=== PATIENT | male | born 1955 | race Caucasian/White ===

== ENCOUNTER → 2017-03-25 | Outpatient (CLI) | payer BC ==
[~2017-03-25] MED LIST: ASPI81TA28 PO; HYDR25TA4 PO; LISI40TA PO; PRAV20TA PO
--- NOTE | 2017-03-25 10:20 | DIAGNOSTIC IMAGING REPORT ---
CHEST 2 VIEWS ROUTINE CLINICAL HISTORY: R07.9 chest pain COMPARISON STUDY: No previous studies for comparison. FINDINGS: The bones soft tissues and hemidiaphragms are normal. The cardiomediastinal silhouette is normal. The lungs are clear. The pulmonary vasculature is normal. IMPRESSION: Negative chest. The above report was generated using voice recognition software. It may contain grammatical, syntax or spelling errors. Electronically signed by: Cecil Casas M.D. 03/25/2017 10:19 AM Dictated Date/Time: 03/25/2017 10:18 AM
== END | disposition home or self-care (01) ==
LOC: C.RAD1850 10:04
PROVIDERS: ATTEND Family Medicine
DX: R07.9 Chest pain, unspecified (principal)

== ENCOUNTER 2017-03-26 10:35 | Emergency (ER) | payer BC ==
[~2017-03-26] VITALS: Ht 170.2 cm; Wt 75.3 kg
[2017-03-26 10:50] VITALS: TEMP 36.7; Ht 170.2 cm; Wt 75.3 kg
[2017-03-26] MEDS ORDERED: LISI40TA PO (12:11)
[2017-03-26] MEDS ORDERED: ASPI81TA28 PO (12:11)
[2017-03-26] MEDS ORDERED: PRAV20TA PO (12:11)
[2017-03-26] MEDS ORDERED: HYDR25TA4 PO (12:11)
--- NOTE | 2017-03-26 12:52 | DIAGNOSTIC IMAGING REPORT ---
CHEST 2 VIEWS ROUTINE CLINICAL HISTORY: Right supraclavicular mass. Left-sided chest pain. COMPARISON STUDY: Chest radiograph March 25, 2017. FINDINGS: Lung volumes are normal. No pneumothorax or pleural effusion is present. There is mild hazy left lower lung opacity. Right lung is clear. Pulmonary vascularity is normal. Cardiomediastinal silhouette is normal. IMPRESSION: Mild hazy left lower lung opacity. Atelectasis is favored. An mild infectious process could appear similar although is considered less likely. Electronically signed by: Hans Daniels M.D. 03/26/2017 12:51 PM Dictated Date/Time: 03/26/2017 12:49 PM
--- NOTE | 2017-03-26 12:55 | DIAGNOSTIC IMAGING REPORT ---
NECK ULTRASOUND CLINICAL HISTORY: Right supraclavicular mass. Possible cyst. COMPARISON STUDY: None. TECHNIQUE: Sonography of the neck at site of palpable abnormality was performed. FINDINGS: Note is made of an 8.8 x 2.4 x 5.8 cm right supraclavicular mass-like abnormality. This contains no color flow. No cystic component is present. This is slightly hypoechoic when compared to the subcutaneous fat. IMPRESSION: 8.8 x 2.4 x 5.8 cm right supraclavicular mass-like abnormality which contains no color flow. The sonographic appearance is nonspecific although favors a fatty lesion such as lipoma. Clinical follow-up to ensure stability is recommended. If interval enlargement, a contrast-enhanced CT is recommended. Electronically signed by: Hans Daniels M.D. 03/26/2017 12:53 PM Dictated Date/Time: 03/26/2017 12:51 PM
--- NOTE | 2017-03-26 13:14 | EMERGENCY ROOM VISIT NOTE ---
History First contact with patient: 11:27 Chief Complaint: NEURO SYMPTOMS Stated Complaint: TINGLING IN FINGERS AND SWOLLEN NECK Nursing Triage Summary: pt reports starting tuesday he had a sneeze x's 2 and developed onset of left chest pain and tingling was doing measures at home to relieve as he thought he pulled a muscle he did ice/heat off and on and motrin and tylenol with no relief he already had an appointment on tuesday, at Dr Dave office patient had complete cardiac workup EKG, CXR and Lab work with no results this AM he woke up with right sided neck mass, noticiably worse when sitting does not pulse, feels spongy pt reports no trouble swallowing and has had all vaccinations with no known exposure to infections diseases History of Present Illness The patient is a 62 year old male who presents to the Emergency Room with complaints of chest pain, numbness in left fingers and right sided supraclavicular mass. He was seen at his PCPs office today and sent to the ER for further evaluation of the supraclavicular mass. He reports the chest pain is left sided came on after sneezing, no worse on palpation or inspiration. It is intermittent and appears somewhat positional (rolling over in bed can help). He denies any associated diaphoresis or shortness of breath. No radiation. It is mild, sharp and lasts for a few seconds at a time. The numbness however has been constant in his finger tips after the sneezing episode. He denies any diabetes. He was seen in the office yesterday and have a workup including normal EKG, d- dimer and troponin. He reports he is no worse today than he was yesterday. However his PCP noted a right sided supraclavicular mass that was present today and did not notice yesterday therefore was sent to the ER. He is a current oral tobacco user but quit smoking 30 years prior. Review of Systems All other systems reviewed and otherwise negative other than HPI Past Medical/Surgical History Medical Problems: (1) Benign hypertension (2) Foreign body in eye Social History Smoking Status: Former Smoker Marital Status: Housing Status: lives with family Occupation Status: employed Current/Historical Medications Scheduled Aspirin (Aspirin Ec), 81 MG PO DAILY Hydrochlorothiazide (Hctz), 0.5 TAB PO DAILY Lisinopril (Prinivil), 40 MG PO QAM Pravastatin (Pravachol ), 20 MG PO QPM Physical Exam Vital Signs Date Time Temp Pulse Resp B/P (MAP) Pulse Ox O2 Delivery O2 Flow Rate FiO2 03/26/17 13:26 70 18 148/95 100 03/26/17 12:46 66 18 147/99 98 Room Air 03/26/17 11:17 65 03/26/17 10:50 36.7 95 20 155/93 98 Room Air Physical Exam General Appearance: WD/WN, no apparent distress Head: normocephalic, atraumatic Eyes: normal inspection, EOMI ENT: normal ENT inspection, TMs normal, pharynx normal, + pertinent finding Neck: no adenopathy, thyroid normal, no carotid bruits, trachea midline, + pertinent finding (large soft homogenous supraclavicular mass on right side noted.) Respiratory/Chest: chest non-tender, lungs clear, normal breath sounds, no respiratory distress, no accessory muscle use Cardiovascular: regular rate, rhythm, no edema, no murmur, normal peripheral pulses Abdomen / GI: normal bowel sounds, non tender, soft Back: no CVA tenderness Extremities: no calf tenderness, normal capillary refill, no pedal edema Neurologic/Psych: 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 Left-sided chest pain. COMPARISON STUDY: Chest radiograph March 25, 2017. FINDINGS: Lung volumes are normal. No pneumothorax or pleural effusion is present. There is mild hazy left lower lung opacity. Right lung is clear. Pulmonary vascularity is normal. Cardiomediastinal silhouette is normal. IMPRESSION: Mild hazy left lower lung opacity. Atelectasis is favored. An mild infectious process could appear similar although is considered less likely. Electronically signed by: Hans Daniels M.D. 03/26/2017 12:51 PM Dictated Date/Time: 03/26/2017 12:49 PM NECK ULTRASOUND CLINICAL HISTORY: Right supraclavicular mass. Possible cyst. COMPARISON STUDY: None. TECHNIQUE: Sonography of the neck at site of palpable abnormality was performed. FINDINGS: Note is made of an 8.8 x 2.4 x 5.8 cm right supraclavicular mass-like abnormality. This contains no color flow. No cystic component is present. This is slightly hypoechoic when compared to the subcutaneous fat. IMPRESSION: 8.8 x 2.4 x 5.8 cm right supraclavicular mass-like abnormality which contains no color flow. The sonographic appearance is nonspecific although favors a fatty lesion such as lipoma. Clinical follow-up to ensure stability is recommended. If interval enlargement, a contrast-enhanced CT is recommended. Electronically signed by: Hans Daniels M.D. 03/26/2017 12:53 PM Dictated Date/Time: 03/26/2017 12:51 PM ECG Indication: chest pain Rate (beats per minute): 70 Rhythm: normal sinus Findings: no acute ischemic change Comparison ECG Date: no prior available ED Course Complete history and physical was performed by myself (I was also called by resident physician Dr Hinkle who saw him in clinic) Discussed case with Dr Vazquez who separately performed history and physical and agreed with plan CXR and US results were discussed with the patient and he was advised to follow up with his PCP to monitor the size of suspect lipoma, he was also advised to keep his appointment with orthopedics for his ongoing left finger numbness Medical Decision Prior records/ancillary studies reviewed. Triage Nursing notes reviewed. Additional history obtained from patient and his outpatient physician Dr Hinkle. The patient's history was concerning for chest pain. Differential diagnosis: Etiologies such as cardiac ischemia, aortic dissection, pulmonary embolism, pneumonia, pneumothorax, musculoskeletal, infections, pericarditis, myocarditis , esophageal rupture, gastrointestinal, as well as others were entertained. Physical examination: Unremarkable as above. ER treatment provided: None Diagnostic interpretation by me: The electrocardiogram was negative for pathologic change. Labs were deemed unnecessary given history, examination and previous negative d- dimer and troponin yesterday without any change in symptoms. Imaging studies: Chest x-ray as above - history does not support diagnosis of pneumonia By the evaluation outlined above emergent etiologies such as cardiac ischemia, aortic dissection, pulmonary embolism, pneumonia, pneumothorax, infections, pericarditis, myocarditis, gastrointestinal, as well as others were deemed relatively unlikely. The patient was informed about the findings as listed above. All questions were answered and he was pleased with the management plan. Return instructions were outlined and the patient was discharged in stable condition. Referral: The patient was referred back to his primary care physician for follow-up in 2 to 3 days for a recheck of the current condition. Medication Reconcilliation Current Medication List: was personally reviewed by me Blood Pressure Screening Patient's blood pressure: Normal blood pressure Impression Primary Impression: Lipoma Departure Information Dispostion Home / Self-Care Condition GOOD Referrals Rosa Isela Kelley M.D. (PCP) Patient Instructions My [facility] Additional Instructions You were evaluated in the ER for a supraclavicular mass and numbness in left hand. US showed this is most likely a lipoma. Recommend you follow up with orthopedics as previous arranged regarding the left finger numbness. Recommend returning to the ER if fever, chills or worsening symptoms or concerned. Please follow up with your PCP in the next 2-3 days for a recheck of your condition. Resident Tracking Resident Involvement: Resident Care Provided Care Provided: Adult ED Problem Qualifiers Primary Impression: Lipoma Lipoma location: other site Qualified Codes: D17.79 - Benign lipomatous neoplasm of other sites
[2017-03-26 13:26] VITALS: BP 148/95; PULSE 70; O2SAT 100
--- NOTE | 2017-03-26 13:28 | EMERGENCY ROOM VISIT NOTE ---
History Report prepared by Angela: Phylicia Zimmerman Under the Supervision of: Dr. Facundo Vazquez D.O. First contact with patient: 11:27 Chief Complaint: NEURO SYMPTOMS Stated Complaint: TINGLING IN FINGERS AND SWOLLEN NECK Nursing Triage Summary: pt reports starting tuesday he had a sneeze x's 2 and developed onset of left chest pain and tingling was doing measures at home to relieve as he thought he pulled a muscle he did ice/heat off and on and motrin and tylenol with no relief he already had an appointment on tuesday, at Dr Dave office patient had complete cardiac workup EKG, CXR and Lab work with no results this AM he woke up with right sided neck mass, noticiably worse when sitting does not pulse, feels spongy pt reports no trouble swallowing and has had all vaccinations with no known exposure to infections diseases History of Present Illness The patient is a 62 year old male who presents to the Emergency Room with complaints of neurologic symptoms beginning 4 days ago. The patient states that 4 days ago he sneezed and had intermittent left-sided chest pain which he described as sharp, and lasting for a couple of seconds. The patient states that taking a deep breath does not exacerbate his chest pain. He also reports having constant numbness in left fingertips over the last 4 days. The patient denies having shortness of breath, dizziness, and diaphoresis. The patient reports that this morning he noticed a mass near his right clavicle. The patient states that he chews tobacco everyday, and states that he quit smoking 30 years ago. Source of History: patient Onset: 4 days ago Position: other (global) Quality: other (neurologic symptoms ) Associated Symptoms: + chest pain (left-sided, sharp), + numbness (left fingertips, constant ), No diaphoresis, No SOB Note: also denies: dizziness Review of Systems See HPI for pertinent positives & negatives. A total of 10 systems reviewed and were otherwise negative. Past Medical & Surgical Medical Problems: (1) Benign hypertension (2) Foreign body in eye Family History No pertinent family history stated. Social History Smoking Status: Former Smoker Smokeless Tobacco Use: Yes Marital Status: Housing Status: lives with family Occupation Status: employed Current/Historical Medications Scheduled Aspirin (Aspirin Ec), 81 MG PO DAILY Hydrochlorothiazide (Hctz), 0.5 TAB PO DAILY Lisinopril (Prinivil), 40 MG PO QAM Pravastatin (Pravachol ), 20 MG PO QPM Allergies Coded Allergies: Cortisone (Verified Adverse Reaction, Mild, STIFF, SORE, 03/26/17) Physical Exam Vital Signs Date Time Temp Pulse Resp B/P (MAP) Pulse Ox O2 Delivery O2 Flow Rate FiO2 03/26/17 13:26 70 18 148/95 100 03/26/17 12:46 66 18 147/99 98 Room Air 03/26/17 11:17 65 03/26/17 10:50 36.7 95 20 155/93 98 Room Air Physical Exam CONSTITUTIONAL/VITAL SIGNS: Reviewed / noted above. GENERAL: Non-toxic in appearance. INTEGUMENTARY: Warm, dry, and [place]. HEAD: Normocephalic. EYES: without scleral icterus or trauma. ENT/OROPHARYNX: clear and moist. LYMPHADENOPATHY/NECK: Is supple without lymphadenopathy or meningismus. RESPIRATORY: Lungs clear and equal. CARDIOVASCULAR: Regular rate and rhythm. CHEST: Soft tissue mass of the right supraclavicular area that is non-tender. GI/ABDOMEN: Soft and nontender. No organomegaly or pulsatile mass. No rebound or guarding. Normal bowel sounds. EXTREMITIES: Warm and well perfused. BACK: No CVA tenderness. NEUROLOGICAL: Intact without focal deficits. PSYCHIATRIC: normal affect. MUSCULOSKELETAL: Normally developed with good muscle tone. Medical Decision & Procedures ER Provider Diagnostic Interpretation: Radiology results as stated below per my review and radiologist interpretation: NECK ULTRASOUND CLINICAL HISTORY: Right supraclavicular mass. Possible cyst. COMPARISON STUDY: None. TECHNIQUE: Sonography of the neck at site of palpable abnormality was performed. FINDINGS: Note is made of an 8.8 x 2.4 x 5.8 cm right supraclavicular mass-like abnormality. This contains no color flow. No cystic component is present. This is slightly hypoechoic when compared to the subcutaneous fat. IMPRESSION: 8.8 x 2.4 x 5.8 cm right supraclavicular mass-like abnormality which contains no color flow. The sonographic appearance is nonspecific although favors a fatty lesion such as lipoma. Clinical follow-up to ensure stability is recommended. If interval enlargement, a contrast-enhanced CT is recommended. Electronically signed by: Hans Daniels M.D. 03/26/2017 12:53 PM Dictated Date/Time: 03/26/2017 12:51 PM CHEST 2 VIEWS ROUTINE CLINICAL HISTORY: Right supraclavicular mass. Left-sided chest pain. COMPARISON STUDY: Chest radiograph March 25, 2017. FINDINGS: Lung volumes are normal. No pneumothorax or pleural effusion is present. There is mild hazy left lower lung opacity. Right lung is clear. Pulmonary vascularity is normal. Cardiomediastinal silhouette is normal. IMPRESSION: Mild hazy left lower lung opacity. Atelectasis is favored. An mild infectious process could appear similar although is considered less likely. Electronically signed by: Hans Daniels M.D. 03/26/2017 12:51 PM Dictated Date/Time: 03/26/2017 12:49 PM ED Course 1240: Previous medical records were reviewed. The patient was evaluated in room B[address] Dr[address] Villarreal. A complete history and physical examination was performed. 1300: Previous medical records were reviewed. The patient was evaluated in room B5. A complete history and physical examination was performed. 1330: On reevaluation, the patient is resting. I discussed the results and findings with the patient. He verbalized agreement of the treatment plan. He was discharged home. Medical Decision Differentials include: lipoma, infection, and other mass. . This is a 62-year-old male who presents for an ultrasound of his mass in the supraclavicular area on the right from the outpatient clinic. He reports that he just noticed the mass today. The patient was being seen for other issues there as well. Exam reveals a small soft and nontender mass in the right supraclavicular area is likely a lipoma. This patient was seen in conjunction with the resident. Ultrasound of the mass in the right supraclavicular area suggestive of a lipoma. This x-ray did not show acute process. There is no clinical findings to suggest pneumonia. The patient was felt to be stable for discharge. Medication Reconcilliation Current Medication List: was personally reviewed by me Blood Pressure Screening Patient's blood pressure: Elevated blood pressure Blood pressure disposition: Referred to PCP Impression Primary Impression: Lipoma Scribe Attestation The scribe's documentation has been prepared under my direction and personally reviewed by me in its entirety. I confirm that the note above accurately reflects all work, treatment, procedures, and medical decision making performed by me. Departure Information Dispostion Home / Self-Care Referrals Rosa Isela Kelley M.D. (PCP) Forms HOME CARE DOCUMENTATION FORM, IMPORTANT VISIT INFORMATION, WORK / SCHOOL INSTRUCTIONS Patient Instructions My [facility] Additional Instructions You were evaluated in the ER for a supraclavicular mass and numbness in left hand. US showed this is most likely a lipoma. Recommend you follow up with orthopedics as previous arranged regarding the left finger numbness. Recommend returning to the ER if fever, chills or worsening symptoms or concerned. Please follow up with your PCP in the next 2-3 days for a recheck of your condition. Problem Qualifiers Primary Impression: Lipoma Lipoma location: other site Qualified Codes: D17.79 - Benign lipomatous neoplasm of other sites
== END 2017-03-26 13:31 | disposition home or self-care (01) ==
LOC: C.EDB 10:37
DX: D17.79 Benign lipomatous neoplasm of other sites (principal); I10 Essential (primary) hypertension; F17.220 Nicotine dependence, chewing tobacco, uncomplicated; Z87.891 Personal history of nicotine dependence; Z79.82 Long term (current) use of aspirin; Z79.899 Other long term (current) drug therapy

== ENCOUNTER → 2017-06-29 | Outpatient (CLI) | payer OTHER ==
[~2017-06-29] MED LIST changes: +OPTIRAY 320 IV PRN
--- NOTE | 2017-06-29 08:26 | DIAGNOSTIC IMAGING REPORT ---
CT NECK WITH INTRAVENOUS CONTRAST CLINICAL HISTORY: Right supraclavicular mass. Abnormal ultrasound. TECHNIQUE: Multiaxial CT images of the neck were performed following the use of intravenous contrast. COMPARISON STUDY: Neck ultrasound 03/26/2017. FINDINGS: There is a right supraclavicular skin marker. Deep to the skin marker there is a 8.0 x 5.8 x 3.6 cm fat-containing lesion. Therefore, this is consistent with a lipoma. There are no areas of abnormal soft tissue within this fatty lesion. This is located within the right lateral lower neck/supraclavicular location. This results in mild mass effect at on the adjacent external jugular vein and neck muscles. No pneumothorax. No suspicious lytic or blastic osseous lesions. Left nasal septal deviation. Mild mucosal thickening within the floor the right maxillary sinus. The mastoid air cells are clear. Old fracture deformity of the right mandibular condyle with anterior subluxation/dislocation of the right mandibular condyle which is likely chronic. The visualized brain parenchyma and orbits are unremarkable. The epiglottis and prevertebral soft tissues are normal in thickness. Punctate calcifications within the bilateral palatine tonsils. The parotid and submandibular glands enhance normally. The thyroid gland is unremarkable. The major cervical vessels are no cervical lymphadenopathy. Best seen on image 126 there are is a 7 mm nodular density within the right vallecula. IMPRESSION: 1. An 8.0 x 5.8 x 3.6 cm fat-containing lesion within the right neck which corresponds to the patient's palpable abnormality. This is consistent with a lipoma. There are no soft tissue components within this lesion at this time. However, if this is painful or has been increasing in size, then consider surgical resection to exclude the less likely possibility of a liposarcoma. 2. A 7 mm nodular density within the right vallecula. This may represent hypertrophy of the lingual tonsils. However, direct visualization is recommended to exclude the possibility of a small lesion. 3. Old fracture deformity of the right mandibular condyle with anterior subluxation/dislocation of the right mandibular condyle which is likely chronic. Electronically signed by: Kostas Carvalho M.D. 06/29/2017 8:24 AM Dictated Date/Time: 06/29/2017 8:13 AM
--- NOTE | 2017-06-29 08:27 | DIAGNOSTIC IMAGING REPORT ---
CHEST CT WITH CONTRAST CT DOSE: 806.88 mGy.cm HISTORY: Patient presents with soft tissue mass of the right side of the neck, upper chest region. M79.9 Mass of soft [id number] TECHNIQUE: Multiaxial CT images of the chest were performed following the intravenous administration of contrast. A dose lowering technique was utilized adhering to the principles of ALARA. COMPARISON: CT soft tissue neck of same day. FINDINGS: Fatty attenuating lesion of the right supraclavicular region seen on CT neck is not imaged. Thyroid is homogeneous. No pathologic adenopathy identified. Nonspecific 8 mm subcarinal lymph node. Heart is normal in size without pericardial effusion. Mild coronary arterial disease. Thoracic aorta is normal in course and caliber without aneurysm or dissection. Moderate mixed plaquing involves the origin of the left subclavian artery with less than 50% narrowing. The pulmonary arterial tree is unremarkable. There is no pneumothorax or pleural effusion. Mild biapical pleural-parenchymal scarring. Linear 4 mm solid nodule of the left lung apex, image 46 series 9. Mild subpleural cystic changes of the lung apices. Small bilateral Bochdalek hernias. No focal airspace consolidation to suggest pneumonia. Central airways appear patent. Area of no acute abnormality of the imaged upper abdomen. Soft tissues are unremarkable. Degenerative changes of the bilateral sternoclavicular joints. No suspicious bony mass lesions. Degenerative changes are seen within the right shoulder and spine. IMPRESSION: 1. No acute intrathoracic abnormality identified. 2. Linear 4 mm nodule of the apical posterior segment left upper lobe, likely benign. 3. No lobar airspace consolidation or pathologic adenopathy. Please refer to below summary of Fleischner criteria recommendations for follow-up of incidental CT nodules (Robert Alanis, Guidelines for management of small pulmonary nodules detected on CT scans: A statement from the Fleischner Society, Radiology 237: [phone].) SOLID NODULES Solitary nodule size: <6 mm * Low risk patients: no follow-up needed * high risk patients: optional CT at 12 months Note: newly detected indeterminate nodule in persons 35 years of age or older. * Low risk patients: minimal or absent history of smoking and/or other known risk factors * high risk patients: history of smoking or of other known risk factors (e.g. first degree relative with lung cancer, or exposure to asbestos, radon, uranium) * if a nodule up to 8 mm is partly solid or is ground glass further follow-up is required after 24 months to exclude possible slow growing adenocarcinoma (MICAELA) The above report was generated using voice recognition software. It may contain grammatical, syntax or spelling errors. Electronically signed by: Ronn Nova M.D. 06/29/2017 8:26 AM Dictated Date/Time: 06/29/2017 8:12 AM
== END | disposition home or self-care (01) ==
LOC: C.CTS 07:20
PROVIDERS: ATTEND Physician Assistant
DX: M79.9 Soft tissue disorder, unspecified (principal); R22.1 Localized swelling, mass and lump, neck

== ENCOUNTER → 2017-07-27 | Day surgery (SDC) | payer OTHER ==
[2017-07-19 13:57] VITALS: BMI 26.0
--- NOTE | 2017-07-19 14:25 | PAT Medication Instructions ---
Service Date Jul 19, 2017. Current Home Medication List Aspirin (Aspirin Ec), 81 MG PO QAM Hydrochlorothiazide (Hctz), 12.5 MG PO QAM Lisinopril (Prinivil), 40 MG PO QAM Oxymetazoline Hcl (Afrin 0.05% Nasal [place]), 1 SPRAYS INTNAS PRN Pravastatin (Pravachol ), 20 MG PO QPM Medication Instructions For Your Scheduled Surgery -Follow your surgeon's instructions for: Aspirin (Aspirin Ec), 81 MG PO QAM - Hold the following medications the morning of surgery: Hydrochlorothiazide (Hctz), 12.5 MG PO QAM Lisinopril (Prinivil), 40 MG PO QAM Oxymetazoline Hcl (Afrin 0.05% Nasal [place]), 1 SPRAYS INTNAS PRN - Take the following medications as scheduled the night before surgery: Pravastatin (Pravachol ), 20 MG PO QPM If you have any questions please call us at [phone] or [phone] or [phone]
[2017-07-19 15:38] LABS: BASO % 0.5 %; BASO ABS # 0.04 K/uL (0-0.2); EOS % 2.7 %; EOS ABS # 0.21 K/uL (0-0.5); HEMATOCRIT 40.1 % (42-52); HEMOGLOBIN 13.9 g/dL (14.0-18.0); IG# 0.04 K/uL (0.00-0.02); LYMPH % 28.1 %; LYMPH ABS # 2.22 K/uL (1.2-3.4); MEAN CELL VOLUME 88.7 fL (80-100); MEAN CORPUSCULAR HEMOGLOBIN 30.8 pg (25-34); MEAN CORPUSCULAR HGB CONC 34.7 g/dl (32-36); MEAN PLATELET VOLUME 9.4 fL (7.4-10.4); MONO % 7.1 %; MONO ABS # 0.56 K/uL (0.11-0.59); NEUT % 61.1 %; NEUT ABS # 4.84 K/uL (1.4-6.5); PLATELET COUNT 308 K/uL (130-400); RED CELL DISTRIBUTION WIDTH CV 13.2 % (11.5-14.5); RED CELL DISTRIBUTION WIDTH SD 42.6 fL (36.4-46.3); WHITE BLOOD COUNT 7.91 K/uL (4.8-10.8)
[2017-07-19 16:33] LABS: CREATININE 1.02 mg/dl (0.60-1.40)
[~2017-07-27] VITALS: Ht 172.7 cm; Wt 77.0 kg
[~2017-07-27] MED LIST changes: +AFRINWC INTNAS; +ATROPINE SULFATE 0.1 MG/ML 5ML SYR IV PRN; +BUPIVACAINE 0.5 % 5 MG/1 ML MPF 30ML VIAL ONE; +CEFAZOLIN 2000MG IV PUSH 15 ML IV SCH; +DEXAMETHASONE SOD INJ 4 MG/ML VIAL ONE; +EpHEDrine SULFATE INJ 50 MG/ML AMP IV PRN; +EpHEDrine SULFATE INJ 50 MG/ML AMP ONE; +FENTANYL CITRATE INJ 50 MCG/1 ML 2 ML VIAL IV PRN; +FENTANYL CITRATE INJ 50 MCG/1 ML 2 ML VIAL ONE; +FLUMAZENIL 0.1 MG/1 ML 10 ML VIAL IV PRN; +HYDR-5688 PO; +HYDROCODONE/ACETAMIN 5/325MG TAB PO PRN; +HYDROmorphone INJ 0.5 MG/0.5 ML SYR IV PRN; +HydrALAZINE HCL 20 MG/ML VIAL ONE; +LABETALOL HCL IV 5 MG/ML 20ML IV PRN; +LACTATED RINGER'S 1000ML 1,000 ML IV SCH; +LIDOCAINE 2% 20 MG/ML 5ML SYR IV ONE; +MEPERIDINE HCL 25 MG/ML CARP IV PRN; +MIDAZOLAM HCL 1 MG/ML 2ML VIAL ONE; +MoRPHine SULFATE 2 MG/ML CARP IV PRN; +NALOXONE HCL 0.4 MG/1 ML VIAL/CARP IV PRN; +ONDANSETRON INJ 2 MG/ML 2 ML VIAL IV PRN; +ONDANSETRON INJ 2 MG/ML 2 ML VIAL ONE; -OPTIRAY 320 IV PRN; +PHENYLEPHRINE 100MCG/ML 5ML SYR IV PRN; +PHENYLEPHRINE 100MCG/ML 5ML SYR ONE; +PROPOFOL IV EMULSION 10 MG/ML 20 ML VIAL IV ONE; +SUCCINYLCHOLINE CHLORIDE 20 MG/ML 10 ML VIAL IV ONE
[2017-07-27 06:03] VITALS: BP 153/87; PULSE 66; TEMP 36.6; O2SAT 99; Ht 172.7 cm; Wt 77.0 kg
--- NOTE | 2017-07-27 07:03 | History & Physical Bridge Note ---
H&P Re-Evaluation Bridge Note: I have examined the patient, reviewed the History & Physical and in the interval since the performance of the History & Physical I have noted the following changes of clinical significance: No changes noted
--- NOTE | 2017-07-27 07:52 | [facility] Post Operative Brief Note ---
Immediate Operative Summary Operative Date Jul 27, 2017. Pre-Operative Diagnosis Right Neck Mass Post-Operative Diagnosis Same as preop Procedure(s) Performed Excision of Right Neck Mass Surgeon Dr. Durán Senior Project Leader/Team Lead Surgeon(s) Rickie Irving PA-C Estimated Blood Loss 3 ml Findings Consistent with Post-Op Diagnosis large lipoma, 9x4cm, deep to platysma Specimens A. Right Neck Mass Drains None Anesthesia Type General Complication(s) none Disposition Accompanied Pt To Recover: no Disposition: Recovery Room / PACU
--- NOTE | 2017-07-27 07:59 | [facility] Operative Report ---
Operative Report Operative Date Jul 27, 2017. Pre-Operative Diagnosis Right Neck Mass Post-Operative Diagnosis Same Procedure(s) Performed Excision of right cervical/supraclavicular mass, greater than 5 cm, deep to platysma Surgeon Dr. Durán Channel Program Manager Surgeon(s) Rickie Irving PA-C Estimated Blood Loss 3 ml Findings 9 x 4 cm lipoma, deep to platysma, excised. Good hemostasis. Specimens A. Right Neck Mass Drains None Anesthesia GETA Complication(s) None Disposition Recovery Room / PACU Indications 62-year-old male with mildly symptomatic large right cervical/supraclavicular lipoma, plan for excision of right neck mass. The risks of the procedure were discussed, all questions were answered, and the patient agreed to proceed with surgery as planned. Description of Procedure The patient was properly identified, consented, and taken to the operating room where he was placed in the supine position. General endotracheal anesthesia was induced. SCDs and a safety belt were placed. Preoperative antibiotics were administered. The patient's right neck and upper chest were prepped and draped in the standard sterile fashion. Surgical timeout was performed and all parties were in agreement that this was the correct patient and procedure to be performed and we continued as planned. An incision was made overlying the mass and deepened down through the subcutaneous tissue with electrocautery. The platysma was divided, and the likely lipoma was encountered. The mass was circumferentially dissected, excised, and passed off the table as specimen. The lipoma extended medially towards the trachea and esophagus. The wound was irrigated and hemostasis was confirmed. Local anesthetic was injected along the skin incision. The platysma was closed with 3-0 Vicryl running suture. The skin was closed with interrupted 3-0 Vicryl deep dermal sutures, followed by 4-0 Monocryl running subcuticular suture. Dermabond was placed over the wound. The patient was extubated in the operating room and taken to the PACU where he recovered without apparent incident. All sponge, instrument and needle counts were correct at the conclusion of the procedure. The patient tolerated the procedure well. The physician's assistant wrestling coach was present and scrubbed for the entirety of the case. He was essential in positioning the patient, prepping and draping, retraction and exposure, removal of the lipoma, closure of the skin, placement of the dressings. I attest to the content of the Intraoperative Record and any orders documented therein. Any exceptions are noted below.
--- NOTE | 2017-07-27 08:06 | Discharge Instructions ---
Discharge Instructions Date of Service Jul 27, 2017. Visit Reason for Visit: Supraclavicular Mass, Lipoma Of Skin And Subcutane Discharge Discharge Diagnosis / Problem: excision of mass Discharge Goals Goal(s): Diagnostic testing Activity Recommendations Activity Limitations: resume your previous activity Shower/Bathe: no limitations Anesthesia . Post Anesthesia Instructions: If you have had General Anesthesia or IV Sedation: * Do not drive today. * Resume driving when surgeon permits. * Do not make important decisions or sign legal documents today. * Call surgeon for: 1. Temperature elevations greater than 101 degrees F. 2. Uncontrollable pain. 3. Excessive bleeding. 4. Persistent nausea and vomiting. 5. Medication intolerance (nausea, vomiting or rash). * For nausea and vomiting use only clear liquids such as: tea, soda, bouillon until nausea subsides, then gradually increase diet as tolerated. * If you have any concerns or questions, call your surgeon's office. If physician is unavailable and it is an emergency, call 911 or go to the nearest emergency room. . Instructions / Follow-Up Instructions / Follow-Up Dr. Durán in 1-2 weeks as planned, call [phone] if you have any questions or need to schedule an appt Diet Recommendations Recommended Home Diet: no limitations Procedures Procedures Performed: Excision of Right Neck Mass Pending Studies Studies pending at discharge: yes List of pending studies: pathology Medical Emergencies . Who to Call and When: Medical Emergencies: If at any time you feel your situation is an emergency, please call 911 immediately. . Non-Emergent Contact Non-Emergency issues call your: Surgeon Call Non-Emergent contact if: you have a fever, temperature is above 101.5, your pain is not controlled, you have any medication questions . . "Provider Documentation" section prepared by Rickie Irving. .
--- NOTE | 2017-07-27 08:21 | Anesthesiology Progress Note ---
Anesthesia Post Op Note Date & Time Jul 27, 2017 at 08:20 Vital Signs Pain Intensity: 0 Vital Signs Past 12 Hours Date Time Temp Pulse Resp B/P (MAP) Pulse Ox O2 Delivery O2 Flow Rate FiO2 07/27/17 08:15 95 16 119/86 99 Oxymask 5 07/27/17 08:06 36.0 98 18 130/77 97 Oxymask 10 07/27/17 06:03 36.6 66 18 153/87 (109) 99 Room Air Notes Mental Status: alert / awake / arousable, participated in evaluation Pt Amnestic to Procedure: Yes Nausea / Vomiting: adequately controlled Pain: adequately controlled Airway Patency, RR, SpO2: stable & adequate BP & HR: stable & adequate Hydration State: stable & adequate Anesthetic Complications: no major complications apparent
[2017-07-27 08:48] VITALS: BP 125/74; PULSE 85; TEMP 36.6; O2SAT 98
[2017-07-27 09:20] VITALS: BP 122/74; PULSE 78; TEMP 36.4; O2SAT 100
== END | disposition home or self-care (01) ==
LOC: C.ACU 05:27
PROVIDERS: ATTEND Surgery
DX: D17.0 Benign lipomatous neoplasm of skin and subcutaneous tissue of head, face and neck (principal); I10 Essential (primary) hypertension; F17.220 Nicotine dependence, chewing tobacco, uncomplicated; Z98.890 Other specified postprocedural states; Z79.82 Long term (current) use of aspirin; Z79.899 Other long term (current) drug therapy; Z80.9 Family history of malignant neoplasm, unspecified; Z82.49 Family history of ischemic heart disease and other diseases of the circulatory system